=== PATIENT | male | born 1985 | race Asian ===

== ENCOUNTER 2020-08-30 17:27 | Emergency (ER) | payer OTHER ==
[~2020-08-30] VITALS: Ht 175.3 cm; Wt 90.0 kg
[2020-08-30 17:36] VITALS: BP 143/88
== END 2020-08-30 18:59 | disposition home or self-care (01) ==
LOC: ER 17:29
DX: S93.402A Sprain of unspecified ligament of left ankle, initial encounter (principal); M25.572 Pain in left ankle and joints of left foot; M25.472 Effusion, left ankle; X58.XXXA Exposure to other specified factors, initial encounter; Y93.9 Activity, unspecified; Y92.89 Other specified places as the place of occurrence of the external cause; Y99.8 Other external cause status
CPT/HCPCS: 29515; 73610; 99284